=== PATIENT | female | born 1970 | race Caucasian/White ===

== ENCOUNTER 2016-10-21 14:34 | Inpatient (IN) | payer MEDICAID ==
[~2016-10-21] VITALS: Ht 165.1 cm; Wt 101.6 kg
[~2016-10-21 14:34] MED LIST: ACET500C5 PO; ALBU8.5H5 INH; AMO500 PO; AUG875 PO; DOXY100T20 PO; HYDR-3498 PO; IBUP-1542 PO; IBUP400T22 PO; ONDA4TAB35 PO; UDROBDM PO
[2016-10-21] MEDS ORDERED: ASPIRIN 325 MG TAB PO STA (17:49)
--- NOTE | 2016-10-21 17:54 | ERD ---
ER Documentation Chief Complaint Date/Time DATE: 10/21/16 TIME: 17:50 Chief Complaint CHEST PAIN X 3 WEEK HPI 46-year-old female with no significant previous medical history other than depression ambulatory to the ED complaining of chest pain. Today at approximately 1 PM while shopping experienced acute onset of pressure-like left upper chest pain which radiated to her arm and a cold feeling to the left side of her face. Symptoms have diminished but are still present. No shortness of breath, nausea, vomiting or diaphoresis. No leg pain or swelling. She has had approximately 6 similar episodes of the last 3 weeks. No other relieving or exacerbating factors. Denies abdominal pain or back pain. No headache or neck pain. Denies visual changes, focal weakness or numbness. Denies anxiety or depression. No URI symptoms or cough. No skin rash. No fevers or chills. ROS All systems reviewed and are negative except as per history of present illness. Medications Home Meds Discontinued Scripts Ibuprofen* (Motrin*) 600 Mg Tab, 600 MG PO Q6, #20 TAB Prov:CYDNEY JUSTIN MD 01/25/16 Amoxicillin-Clavulanate K* (Augmentin*) 875 Mg Tab, 875 MG PO BID for 7 Days, TAB Prov:CYDNEY NEGRO PA-C 06/01/15 Amoxicillin* (Amoxicillin*) 500 Mg Cap, 1000 MG PO Q8 for 10 Days, CAP Prov:DASIA CURRAN MD 05/28/15 Doxycycline Hyclate* (Doxycycline Hyclate*) 100 Mg Tablet.dr, 100 MG PO BID for 10 Days, TAB Prov:DASIA CURRAN MD 05/28/15 Hydrocodone Bit-Acetaminophen* ([place]*) 5-325 Mg Tab, 1 TAB PO Q6 Y for PAIN LEVEL 6-10 for 7 Days, TAB Prov:DASIA CURRAN MD 05/28/15 Albuterol Sulfate* (Albuterol Sulfate* HFA) 8.5 Gm Hfa.aer.ad, 1-2 PUFF INH Q4 Y for SHORTNESS OF BREATH, #1 EA Prov:KELSY BENAVIDEZ PA-C 05/23/15 Guaifenesin-Dextromethorphan* (Robitussin* DM) 100MG/10MG/5ML Syrup, 5 ML PO Q6H Y for COUGH, #140 ML 0 Refills Prov:RENEE LAYTON PA-C 05/22/15 Ondansetron Hcl* (Zofran* ODT) 4 mg -ODT Tab.disper, 4 MG PO Q4H Y for NAUSEA AND OR VOMITING, #30 TAB 0 Refills Prov:RENEE LAYTON PA-C 05/22/15 Ibuprofen* (Motrin*) 400 Mg Tab, 400 MG PO Q8H Y for PAIN, #21 TAB 0 Refills Prov:RENEE LAYTONDave 05/22/15 Acetaminophen* (Tylophen*) 500 Mg Capsule, 500 MG PO Q6H Y for FEVER, #28 TAB 0 Refills Prov:RENEE LAYTON PA-C 05/22/15 Allergies Allergies: Coded Allergies: hydrocodone (Verified Allergy, Mild, BECOMES AGGITATED, 10/21/16) PMhx/Soc Reviewed in chart. As per HPI. History of Surgery: Yes (carpal tunnel 2003) Anesthesia Reaction: No Hx Neurological Disorder: No Hx Respiratory Disorders: Yes (PNA) Hx Cardiac Disorders: No Hx Psychiatric Problems: Yes (Depression, Anxiety ) Hx Miscellaneous Medical Probl: Yes (Sciatica) Hx Alcohol Use: No Hx Substance Use: No Hx Tobacco Use: No FmHx Father of alcoholic liver disease. No family history of coronary artery disease, sudden cardiac or diabetes. Physical Exam Vitals Vital Signs Date Time Temp Pulse Resp B/P Pulse Ox O2 Delivery O2 Flow Rate FiO2 10/21/16 19:17 89 16 120/79 99 Room Air 10/21/16 17:19 101 21 140/101 99 Room Air 10/21/16 14:49 99.5 118 18 167/81 99 Physical Exam Const: Alert, anxious but in no acute distress. Head: Atraumatic Eyes: Normal Conjunctiva ENT: Normal External Ears, Nose and Mouth. Neck: Full range of motion. No JVD. Nontender. Resp: Clear to auscultation bilaterally Cardio: Regular rate and rhythm, no murmurs. No chest wall tenderness. Abd: Soft, obese. non tender, non distended. Normal bowel sounds Skin: No petechiae or rashes Back: No midline or flank tenderness Ext: No cyanosis, or edema. No calf swelling or tenderness. Neur: Awake and alert. No focal deficit observed. Cranial nerves II through XII are grossly intact. Psych: Patient appears anxious but not depressed. Result Diagram: 10/21/16181410/21/161814 Results 24 hrs Laboratory Tests Test 10/21/16 18:15 White Blood Count 8.310^3/ul Red Blood Count 4.2710^6/ul Hemoglobin 12.4g/dl Hematocrit 38.0% Mean Corpuscular Volume 89.0fl Mean Corpuscular Hemoglobin 29.0pg Mean Corpuscular Hemoglobin Concent 32.6g/dl Red Cell Distribution Width 13.2% Platelet Count 40131^3/UL Mean Platelet Volume 8.7fl Neutrophils % 55.9% Lymphocytes % 33.9% Monocytes % 6.8% Eosinophils % 2.8% Basophils % 0.4% Nucleated Red Blood Cells % 0.0/100WBC Neutrophils # 4.610^3/ul Lymphocytes # 2.810^3/ul Monocytes # 0.610^3/ul Eosinophils # 0.210^3/ul Basophils # 0.010^3/ul Nucleated Red Blood Cells # 0.010^3/ul Sodium Level 140mmol/L Potassium Level 3.8mmol/L Chloride Level 103mmol/L Carbon Dioxide Level 26mmol/L Anion Gap 15 Blood Urea Nitrogen 10mg/dl Creatinine 0.56mg/dl Glucose Level 92mg/dl Calcium Level 8.2mg/dl Total Bilirubin 0.8mg/dl Direct Bilirubin 0.00mg/dl Indirect Bilirubin 0.8mg/dl Aspartate Amino Transf (AST/SGOT) 18IU/L Alanine Aminotransferase (ALT/SGPT) 20IU/L Alkaline Phosphatase 86IU/L Troponin I < 0.012ng/ml Total Protein 7.7g/dl Albumin 4.0g/dl Globulin 3.70g/dl Albumin/Globulin Ratio 1.08 Current Medications Medications (Trade) Dose Ordered Sig/Aba Route PRN Reason Start Time Stop Time Status Last Admin Dose Admin Aspirin (Aspirin) 325 mg ONCE STAT PO 10/21/16 17:49 10/21/16 17:51 DC 10/21/16 18:33 Nitroglycerin (Nitroglycerin (Sl Tab) 0.4 Mg) 1 tab Q5M UP TO 3 DOSES PRN SL CHEST PAIN 10/21/16 18:00 4/6/17 18:33 Ondansetron HCl (Zofran Inj) 4 mg ER BRIDGE PRN IV NAUSEA AND/OR VOMITING 10/21/16 21:30 10/22/16 21:29 Acetaminophen (Tylenol Tab) 650 mg ER BRIDGE PRN PO MILD PAIN/FEVER 10/21/16 21:30 10/22/16 21:29 RHYTHM STRIP INTERPRETATION: Time: 19:17. Sinus rhythm. No ectopy. Ventricular rate 89. Indication: Tachycardia. EKG: TIME: 15:02. Sinus tachycardia. Ventricular rate 112. Right axis deviation. No acute ST segment elevation or depression. No ectopy. EP Interpretation: Abnormal EKG. IMAGING: PROCEDURE: Chest Radiograph. CLINICAL INDICATION: Chest pain TECHNIQUE: Single frontal chest radiograph. COMPARISON: Chest radiograph 05/26/2015 FINDINGS: The cardiomediastinal silhouette is within normal limits. Lung volumes are decreased in there is basilar atelectasis. Interstitial opacities are likely related to compressive changes. There is more focal density in the left lung base suggesting developing infiltrate, new compared to 05/26/2015. Focal atelectasis could also have this appearance. Suture anchors are stable in the right humeral head. The bones are otherwise intact. IMPRESSION: 1. Increased density in the left lung base which may represent atelectasis or developing infiltrate. 2. Low lung volumes with atelectasis and compressive changes RPTAT: HJBF .Armond Blake MD, Date Time Electronically viewed and signed by .Armond Blake MD, on 2016 18:13 .B/ Procedures/MDM DOCUMENTS REVIEWED: ED nurse, prior ED ED COURSE: Aspirin 325 mg. Sublingual nitroglycerin 3. REEXAMINATION/REEVALUATION: Time: 19:30. Pain relieved after 3 sublingual nitroglycerin. Asymptomatic. MEDICAL DECISION MAKIN-year-old female with no significant previous medical history other than depression ambulatory to the ED complaining of chest pain. She has had intermittent chest pain over the last several months but worse today. Chest x-ray reveals left lower lobe atelectasis versus developing infiltrate but the patient has no respiratory symptoms, cough, fever or other symptoms of pneumonia. No pneumothorax. Low risk for pulmonary embolism and aortic dissection is unlikely. Other etiologies such as gastritis/GERD and anxiety are considered. Atypical chest pain relieved with 3 sublingual nitroglycerin. ROBERT score 0. Lower cardiac etiology is unlikely patient has no outpatient access to follow-up and will not be able to have further risk stratification within 72 hours. She will be admitted to telemetry for further cardiac evaluation and management. Counseled patient regarding diagnostic workup, diagnosis and need for admission. CALLS/CONSULTS: Time 20:15, Dr. Hitchcock. PATIENT CARE TRANSITIONED: Time: 21:20, Dr. Hitchcock. Departure Diagnosis: Primary Impression: Chest pain Chest pain type: unspecified Qualified Code: R07.9 - Chest pain, unspecified type Additional Impression: Anxiety Condition: Serious ROXANNE RAMOS MD Oct 21, 2016 17:54
[2016-10-21] MEDS ORDERED: NITROGLYCERIN (SL) 0.4 MG TAB SL PRN ×2 (18:00→22:00)
--- NOTE | 2016-10-21 18:13 | RADRPT ---
PROCEDURE: Chest Radiograph. CLINICAL INDICATION: Chest pain TECHNIQUE: Single frontal chest radiograph. COMPARISON: Chest radiograph 05/26/2015 FINDINGS: The cardiomediastinal silhouette is within normal limits. Lung volumes are decreased in there is ba silar atelectasis. Interstitial opacities are likely related to compressive changes. There is more focal density in the left lung base suggesting developing infiltrate, new compared to 05/26/2015. Focal atelectasis could also have this appearance. Suture anchors are stable in the right humeral head. The bones are otherwise intact. IMPRESSION: 1. Increased density in the left lung base which may represent atelectasis or developing infiltrate . 2. Low lung volumes with atelectasis and compressive changes RPTAT: HJBF .Armond Blake MD, Date Time Electronically viewed and signed by .Armond Blake MD, MD on 10/21/2016 18:13 .B/
[2016-10-21 18:51] LABS: ADD SCAN DIFF NO
[2016-10-21 18:52] LABS: BASOPHILS % 0.4 % (0.0-2.0); EOSINOPHILS # 0.2 10^3/ul (0.0-0.5); EOSINOPHILS % 2.8 % (0.0-7.0); HEMOGLOBIN 12.4 g/dl (12.0-16.0); LYMPHOCYTES # 2.8 10^3/ul (0.8-2.9); LYMPHOCYTES % 33.9 % (15.0-51.0); MEAN CORPUSCULAR HGB CONC 32.6 g/dl (32.0-37.0); MEAN PLATELET VOLUME 8.7 fl (7.4-10.4); MONOCYTE # 0.6 10^3/ul (0.3-0.9); MONOCYTES % 6.8 % (0.0-11.0); NEUTROPHIL # 4.6 10^3/ul (1.6-7.5); NEUTROPHILS % 55.9 % (39.0-77.0); PLATELET COUNT 415 10^3/UL (140-415); RED BLOOD COUNT 4.27 10^6/ul (4.20-5.40); RED CELL DISTRIBUTION WIDTH 13.2 % (11.5-14.5); WHITE BLOOD COUNT 8.3 10^3/ul (4.8-10.8)
[2016-10-21 19:01] LABS: CHLORIDE 103 mmol/L (97-110); POTASSIUM 3.8 mmol/L (3.5-5.1); SODIUM 140 mmol/L (135-144)
[2016-10-21 19:03] LABS: CREATININE 0.56 mg/dl (0.44-1.00)
[2016-10-21 19:04] LABS: ALANINE AMINOTRANSFERASE 20 IU/L (13-69); ALBUMIN/GLOBULIN RATIO 1.08; ALKALINE PHOSPHATASE 86 IU/L (42-121); ANION GAP 15 (8-16); ASPARTATE AMINO TRANSFERASE 18 IU/L (15-46); BILIRUBIN,INDIRECT 0.8 mg/dl (0-1.1); BILIRUBIN,TOTAL 0.8 mg/dl (0.2-1.3); BLOOD UREA NITROGEN 10 mg/dl (7-20); CARBON DIOXIDE 26 mmol/L (21-31); GLUCOSE 92 mg/dl (70-220); TOTAL PROTEIN 7.7 g/dl (6.1-8.1)
[2016-10-21 19:05] LABS: CALCIUM 8.2 mg/dl (8.4-10.2)
[2016-10-21 19:17] LABS: TROPONIN-I < 0.012 ng/ml (0.00-0.12)
[2016-10-21] MEDS ORDERED: ONDANSETRON 4 MG INJ IV PRN (21:30)
[2016-10-21] MEDS ORDERED: ACETAMINOPHEN 325 MG TAB PO PRN (21:30)
--- NOTE | 2016-10-21 21:31 | HP ---
Date/Time of Note Date/Time of Note DATE: 10/21/16 TIME: 21:31 Assessment/Plan VTE Prophylaxis VTE Prophylaxis Intervention: ambulation Lines/Catheters IV Catheter Type (from Nrsg): Saline Lock Assessment/Plan Assessment/Plan 1) Chest Pain - Admit to Telemetry - Serial Cardiac Enzymes - Repeat EKG in AM - CONSULT: Cardiology - Echocardiogram 2) Anxiety - No specific treatment is offered at this time other than if she feels anxious in the future, she should take a long, slow, deep breath in through her nose and then out through her mouth. - Establish with a primary care provider who can evaluate to more specifically more importantly, followed you over time. HPI/ROS Admit Date/Time Admit Date/Time 10/21/16 2110 Hx of Present Illness Patient is a 46-year-old female with no significant previous medical history other than anxiety and depression who presents complaining of chest pain off and on x 3 weeks, but significantly worse today. At approximately 1 PM, while shopping, she experienced acute onset of pressure-like left upper chest pain which radiated to her left arm and a tingling feeling to the left side of her face. Symptoms had diminished on their own, but were still present. (They resolved with 3 rounds of NTG.) No associated shortness of breath, nausea, vomiting or diaphoresis. No leg pain or swelling. She has had approximately 6 similar episodes of the last 3 weeks. No other relieving or exacerbating factors. Denies abdominal pain or back pain. No headache or neck pain. Denies visual changes, focal weakness or numbness. Denies anxiety or depression. No URI symptoms or cough. No skin rash. No fevers or chills. She does admit that in the past, over the last couple of years, she has had the same feeling in the left side of her face, but no associated symptoms such as chest pain, slurred speech, extremity weakness or vision changes. When I see her , her symptoms are completely resolved, and she is thinking that is t=was just her anxiety coming back ED COURSE per ER Physician: Aspirin 325 mg. Sublingual nitroglycerin 3. - REEXAMINATION/REEVALUATION: Time: 19:30. Pain relieved after 3 sublingual nitroglycerin. Asymptomatic. ROS General: Admits: Denies: Fever, Chills, Poor Appetite, Generalized Body Aches Eyes: Admits: Denies: Blurry Vision, Double Vision HENT: Admits: Denies: Ear Pain/Pressure, Runny/Stuffy Nose, Sore Throat Cardiovascular: Admits: Chest Pain, Denies: Palpitations, Leg Swelling Pulmonary: Admits: Denies: Cough, Wheeze, Shortness of Breath Gastrointestinal: Admits: Denies: Abdominal Pain, Nausea, Vomiting, Diarrhea, Blood in Stool, Black-Colored Stool Urogenital: Admits: Denies: Burning with Urination, Urinary Frequency, Blood in Urine Musculoskeletal: Admits: Left arm pain - RESOLVED Denies: Joint Pain, Joint Swelling, Muscle Pain Neurological: Admits: Numbness & Tingling to left side of face, more on the cheek/lower half - RESOLVED Denies: Headache, Dizziness,, Shooting Pains Integumentary: Admits: Denies: Rash, Itch Endocrine: Admits: Denies: Excessive Thirst, Excessive Hunger, Intolerant to Cold , Intolerant to Heat Psychiatric: Admits: Anxiety, Depression - weaned off medications 3 years ago. Thinks she may need to go back on them. Denies: PMH/Family/Social Past Medical History Pneumonia; Depression; Anxiety; Sciatica Past Surgical History carpal tunnel 2003 Family History Significant Family History: other (Father of alcoholic liver disease. No family history of coronary artery disease, sudden cardiac or diabetes.) Social History Alcohol Use: none Smoking Status: Never smoker Drug Use: none Exam/Review of Systems Vital Signs Vitals Vital Signs Date Time Temp Pulse Resp B/P Pulse Ox O2 Delivery O2 Flow Rate FiO2 10/21/16 19:17 89 16 120/79 99 Room Air 10/21/16 14:49 99.5 Exam Exam General: Obese female sleeping soundly, rouses easily, alert and oriented, in no acute distress. Eyes: Sclera White, EOMI HENT: Normocephalic/Atraumatic, External Ears/Nose Normal, Moist Mucus Membranes Neck: Supple, Trachea Midline Cardiovascular: Normal Rate, Regular Rhythm, Normal S1 and S2, No Murmur, No Extra Sounds. Radial pulse +2/4. No pedal Edema. Pulmonary: Clear to Auscultation Bilaterally, Normal Respiratory Effort, No Rales, Rhonchi or Wheezes Gastrointestinal: Normoactive Bowel Sounds, Soft, Non-Tender/Non-Distended, No Hepatosplenomegaly Appreciated, No Pulsatile Masses Urogenital: Deferred Musculoskeletal: Normal Muscle Bulk and Tone. No reproducible chest pain with palpation ove the left upper and central chest regions. Neurological: CN II - XII Grossly Intact, Non-Focal, Speech Normal Integumentary: Normal Moisture and Temperature, Good Turgor, No Jaundice, No Rash Lymphatic: No Cervical Lymphadenopathy Psychiatric: Appropriate Mood and Affect, Good Eye Contact Labs Result Diagram: 10/21/16181410/21/161814 Medications Medications Home Meds Discontinued Scripts Ibuprofen* (Motrin*) 600 Mg Tab, 600 MG PO Q6, #20 TAB Prov:CYDNEY JUSTIN MD 01/25/16 Amoxicillin-Clavulanate K* (Augmentin*) 875 Mg Tab, 875 MG PO BID for 7 Days, TAB Prov:CYDNEY NEGRO PA-C 06/01/15 Amoxicillin* (Amoxicillin*) 500 Mg Cap, 1000 MG PO Q8 for 10 Days, CAP Prov:DASIA CURRAN MD 05/28/15 Doxycycline Hyclate* (Doxycycline Hyclate*) 100 Mg Tablet.dr, 100 MG PO BID for 10 Days, TAB Prov:DASIA CURRAN MD 05/28/15 Hydrocodone Bit-Acetaminophen* ([place]*) 5-325 Mg Tab, 1 TAB PO Q6 Y for PAIN LEVEL 6-10 for 7 Days, TAB Prov:DASIA CURRAN MD 05/28/15 Albuterol Sulfate* (Albuterol Sulfate* HFA) 8.5 Gm Hfa.aer.ad, 1-2 PUFF INH Q4 Y for SHORTNESS OF BREATH, #1 EA Prov:KELSY BENAVIDEZ PA-C 05/23/15 Guaifenesin-Dextromethorphan* (Robitussin* DM) 100MG/10MG/5ML Syrup, 5 ML PO Q6H Y for COUGH, #140 ML 0 Refills Prov:RENEE LAYTON PA-C 05/22/15 Ondansetron Hcl* (Zofran* ODT) 4 mg -ODT Tab.disper, 4 MG PO Q4H Y for NAUSEA AND OR VOMITING, #30 TAB 0 Refills Prov:RENEE LAYTON PA-C 05/22/15 Ibuprofen* (Motrin*) 400 Mg Tab, 400 MG PO Q8H Y for PAIN, #21 TAB 0 Refills Prov:RENEE LAYTON AUGUSTINE 05/22/15 Acetaminophen* (Tylophen*) 500 Mg Capsule, 500 MG PO Q6H Y for FEVER, #28 TAB 0 Refills Prov:CALINRENEE BRADSHAW 05/22/17 Current Medications Medications (Trade) Dose Ordered Sig/Aba Route PRN Reason Start Time Stop Time Status Last Admin Dose Admin Aspirin (Aspirin) 325 mg ONCE STAT PO 10/21/16 17:49 10/21/16 17:51 DC 10/21/16 18:33 Nitroglycerin (Nitroglycerin (Sl Tab) 0.4 Mg) 1 tab Q5M UP TO 3 DOSES PRN SL CHEST PAIN 10/21/16 18:00 10/21/16 18:33 Ondansetron HCl (Zofran Inj) 4 mg ER BRIDGE PRN IV NAUSEA AND/OR VOMITING 10/21/16 21:30 10/22/16 21:29 Acetaminophen (Tylenol Tab) 650 mg ER BRIDGE PRN PO MILD PAIN/FEVER 10/21/16 21:30 10/22/16 21:29 Procedures Procedures RHYTHM STRIP INTERPRETATION: Time: 19:17. Sinus rhythm. No ectopy. Ventricular rate 89. Indication: Tachycardia. EKG: TIME: 15:02. Sinus tachycardia. Ventricular rate 112. Right axis deviation. No acute ST segment elevation or depression. No ectopy. EP Interpretation: Abnormal EKG. PROCEDURE: Chest Radiograph. CLINICAL INDICATION: Chest pain TECHNIQUE: Single frontal chest radiograph. COMPARISON: Chest radiograph 05/26/2015 FINDINGS: The cardiomediastinal silhouette is within normal limits. Lung volumes are decreased in there is basilar atelectasis. Interstitial opacities are likely related to compressive changes. There is more focal density in the left lung base suggesting developing infiltrate, new compared to 05/26/2015. Focal atelectasis could also have this appearance. Suture anchors are stable in the right humeral head. The bones are otherwise intact. IMPRESSION: 1. Increased density in the left lung base which may represent atelectasis or developing infiltrate. 2. Low lung volumes with atelectasis and compressive changes ABBY BERG DO Oct 21, 2016 21:31
[2016-10-21] MEDS ORDERED: morphine 2 MG INJ IV PRN (22:00)
[2016-10-21] MEDS ORDERED: METOCLOPRAMIDE 10 MG INJ IV PRN (22:00)
[2016-10-21] MEDS ORDERED: NACL 0.9% 3 ML SYG IV SCH (22:00)
[2016-10-21 22:44] LABS: CREATINE KINASE 107 IU/L (23-200)
[2016-10-21 22:54] LABS: CK-MB 0.41 ng/ml (0.0-2.4)
[2016-10-21 22:59] LABS: TROPONIN-I < 0.012 ng/ml (0.00-0.12)
[2016-10-22] VITALS (10 sets, daily range): BP systolic 107–123; BP diastolic 63–77; PULSE 67–100; RESP 16–19; Ht 165.1 cm; Wt 101.6 kg
[2016-10-22] MEDS: FAMOTIDINE 20 MG TAB PO SCH ×2 (09:18→20:25)
[2016-10-22 11:01] LABS: ADD SCAN DIFF NO
[2016-10-22] MEDS: ACETAMINOPHEN 325 MG TAB PO PRN ×2 (11:09→20:26)
[2016-10-22 11:13] LABS: BASOPHILS % 0.3 % (0.0-2.0); EOSINOPHILS # 0.2 10^3/ul (0.0-0.5); EOSINOPHILS % 2.3 % (0.0-7.0); HEMOGLOBIN 11.9 g/dl (12.0-16.0); LYMPHOCYTES # 2.4 10^3/ul (0.8-2.9); LYMPHOCYTES % 35.9 % (15.0-51.0); MEAN CORPUSCULAR HEMOGLOBIN 28.7 pg (29.0-33.0); MEAN CORPUSCULAR HGB CONC 32.2 g/dl (32.0-37.0); MEAN CORPUSCULAR VOLUME 89.2 fl (82.0-101.0); MEAN PLATELET VOLUME 8.7 fl (7.4-10.4); MONOCYTE # 0.4 10^3/ul (0.3-0.9); MONOCYTES % 5.9 % (0.0-11.0); NEUTROPHIL # 3.7 10^3/ul (1.6-7.5); NEUTROPHILS % 55.4 % (39.0-77.0); PLATELET COUNT 359 10^3/UL (140-415); RED BLOOD COUNT 4.15 10^6/ul (4.20-5.40); RED CELL DISTRIBUTION WIDTH 13.4 % (11.5-14.5); WHITE BLOOD COUNT 6.6 10^3/ul (4.8-10.8)
[2016-10-22 11:16] LABS: CREATINE KINASE 81 IU/L (23-200)
[2016-10-22 11:18] LABS: CHOL/HDL RATIO 4.8 RATIO; MAGNESIUM 1.9 mg/dl (1.7-2.5)
[2016-10-22 11:34] LABS: CK-MB < 0.22 ng/ml (0.0-2.4); TROPONIN-I < 0.012 ng/ml (0.00-0.12)
--- NOTE | 2016-10-22 17:36 | RADRPT ---
Echocardiogram Report Patient Name: NICHELLE MILLER Gender: Female Date: 1970 Study Date: 22-Oct-2016 Racking Technician: Kaylene Trevizo [facility] Location: [id number] Ref. Physician: ABBY BERG Quality: Good Procedures: Transthoracic echocardiogram with complete 2D, M-Mode, and doppler examination. Indications: Chest Pain. 2D/M Mode Doppler Measurement Value Normal Ranges Measurement Value Normal Ranges LVIDd 2D 5.2 3.5 - 5.6 cm AV Peak Jorge 1.3 m/sec LVIDs 2D 2.2 2.1 - 4.1 cm AV Peak PG 6.5 mmHg LVPWd 2D 0.7 0.6 - 1.1 cm LVOT Peak Jorge 1.2 m/sec IVSd 2D 0.8 0.6 - 1.1 cm LVOT Peak PG 5.7 mmHg AoR Diam 2D 2.8 2.0 - 3.7 cm MV E Peak Jorge 1.0 m/sec EDV 2D 130.7 cm3 MV A Peak Jorge 0.8 m/sec ESV 2D 10.7 cm3 MV E/A 1.3 LA Dimen 2D 3.2 2.3 - 4.0 cm MV Decel Time 162 msec MV Decel Jones 6 MV E/A 1.3 Findings Left Ventricle: Lower limits of normal systolic function. Normal left ventricular cavity size. Normal left ventricular wall thickness. Ejection fraction is visually estimated at 50 %. Tissue Doppler/Mitral Doppler indices are within normal limits. Right Ventricle: Normal right ventricular size. Normal right ventricular systolic function. Left Atrium: The left atrium is normal in size. Right Atrium: The right atrium is normal in size. Mitral Valve: Normal appearance and function of the mitral valve with trace physiologic regurgitation. Aortic Valve: Normal appearance of the aortic valve. No significant aortic stenosis or insufficiency. Tricuspid Valve: Normal appearance of the tricuspid valve. Unable to obtain RVSP due to minimal presence of tricuspid regurgitation. Pulmonic Valve: Normal pulmonic valve appearance. Pericardium: Normal pericardium with no significant pericardial effusion. Aorta: Normal aortic root. IVC: Normal size and normal respiratory collapse consistent with normal right atrial pressure. Conclusions 1.Lower limits of normal systolic function. Normal left ventricular cavity size. Normal left ventricular wall thickness. Ejection fraction is visually estimated at 50 %. Tissue Doppler/Mitral Doppler indices are within normal limits. 2.Normal appearance and function of the mitral valve with trace physiologic regurgitation. 3.Normal appearance of the tricuspid valve. Unable to obtain RVSP due to minimal presence of tricuspid regurgitation. Electronically Signed By: Mike Stein 22-Oct-2016 17:36:18 -0700 Patient Name: NICHELLE MILLER Study Date: 22-Oct-2016 [id number]
--- NOTE | 2016-10-22 18:09 | PN ---
DATE: 10/22/2016 SUBJECTIVE DATA: Denies any chest pain. Denies any dyspnea. OBJECTIVE DATA: VITAL SIGNS: Temperature 98.0, pulse rate 84, respiratory rate 18, blood pressure 123/77, oxygen saturation 100% on room air. GENERAL: This is a 49-year-old female, morbidly obese, lying in bed in no apparent distress. HEENT: Head normocephalic and atraumatic. Eyes: Anicteric sclerae. Conjunctivae clear. ENT: Nasal septum is midline. Oral mucosa is moist. NECK: Supple. No JVD noticed. RESPIRATORY: Bilaterally clear to auscultation. No adventitious breath sounds. No use of accessory muscles of respiration. CARDIAC: Regular rate and rhythm. No murmurs heard. ABDOMEN: Soft, nontender and nondistended. Bowel sounds positive in all 4 quadrants. GENITOURINARY: Deferred. EXTREMITIES: No cyanosis, no clubbing, no edema. Peripheral pulses palpable. NEUROLOGIC: The patient is awake, alert and oriented. Cranial nerves are grossly intact. LABORATORY AND DIAGNOSTIC DATA: WBC 6.6, hemoglobin 11.9, hematocrit 37.0, platelet count 359. Sodium 140, potassium 3.9, chloride 103, carbon dioxide 26 , anion gap 15, BUN 10, creatinine 0.56, glucose 92, calcium 8.2. Magnesium 1.9. Hemoglobin A1c 5.5. Triglycerides 156, total cholesterol 174, LDL 107, HDL 36. ASSESSMENT AND PLAN: 1. Chest pain. To rule out acute coronary syndrome. Serial troponins negative so far. Pending 2D echocardiogram. 2. Anxiety disorder. We will maintain the patient on p.r.n. anxiolytics. 3. Dyslipidemia. Elevated triglycerides and suboptimal LDL. We will advise a low cholesterol diet. 4. Obesity. BMI of 37.3 kg/meter squared. We will advise weight reduction. 5. Fluid, electrolytes and nutrition. Low cholesterol diet. 6. Deep venous thrombosis prophylaxis with ambulation. 7. Gastrointestinal prophylaxis. Histamine 2 receptor blockers. PLAN: Continue current care. Await 2D echocardiogram. Case discussed with Dr. Whittaker. RONEL WHITTAKER MD, AM/RENEE Conf#: [id number] DID#: [id number] [facility]
[2016-10-23] VITALS (8 sets, daily range): BP systolic 106–114; BP diastolic 56–63; PULSE 60–82; RESP 18–20
[2016-10-23 07:36] LABS: ADD SCAN DIFF NO
[2016-10-23 07:46] LABS: BASOPHILS % 0.5 % (0.0-2.0); EOSINOPHILS # 0.2 10^3/ul (0.0-0.5); EOSINOPHILS % 3.6 % (0.0-7.0); HEMATOCRIT 38.4 % (37.0-47.0); HEMOGLOBIN 12.2 g/dl (12.0-16.0); LYMPHOCYTES # 2.2 10^3/ul (0.8-2.9); LYMPHOCYTES % 36.5 % (15.0-51.0); MEAN CORPUSCULAR HEMOGLOBIN 28.6 pg (29.0-33.0); MEAN CORPUSCULAR HGB CONC 31.8 g/dl (32.0-37.0); MEAN CORPUSCULAR VOLUME 89.9 fl (82.0-101.0); MONOCYTE # 0.4 10^3/ul (0.3-0.9); MONOCYTES % 6.7 % (0.0-11.0); NEUTROPHIL # 3.2 10^3/ul (1.6-7.5); NEUTROPHILS % 52.5 % (39.0-77.0); PLATELET COUNT 367 10^3/UL (140-415); RED BLOOD COUNT 4.27 10^6/ul (4.20-5.40); RED CELL DISTRIBUTION WIDTH 13.3 % (11.5-14.5); WHITE BLOOD COUNT 6.1 10^3/ul (4.8-10.8)
[2016-10-23 08:04] LABS: CALCIUM 8.1 mg/dl (8.4-10.2); CREATININE 0.5 mg/dl (0.44-1.00); POTASSIUM 4.2 mmol/L (3.5-5.1)
[2016-10-23 08:06] LABS: MAGNESIUM 1.9 mg/dl (1.7-2.5)
[2016-10-23] MEDS: FAMOTIDINE 20 MG TAB PO SCH (08:15)
--- NOTE | 2016-10-23 10:53 | PDOCDIS ---
Discharge Instructions DIAGNOSIS Discharge Diagnosis: Atypical chest pain. CONDITION Patient Condition: Stable HOME CARE INSTRUCTIONS: Diet Instructions: Low Fat /Cholesterol OTHER ORDERS: Other Orders: 1. Take a low-cholesterol diet. 2. Resume activities as tolerated. 3. Follow-up with your primary care physician as scheduled. 4. Take vitamin D supplements. RONEL DUENAS NP Oct 23, 2016 10:53
[2016-10-23] MEDS ORDERED: CHOL400T10 PO (10:54)
--- NOTE | 2016-10-23 13:06 | DS ---
DATE OF ADMISSION: 10/21/2016 DATE OF DISCHARGE: 10/23/2016 FINAL DIAGNOSES: 1. Atypical chest pain. Acute coronary syndrome ruled out. 2. Anxiety disorder. 3. Dyslipidemia. 4. Obesity. 5. Vitamin D deficiency. CONSULTANTS: None. HOSPITAL COURSE: This is a 46-year-old female with no significant past medical history other than a remote history of anxiety who presents to the emergency room complaining of intermittent chest pain that has been going on for 3 weeks. The patient came to the hospital because the chest pain was getting worse. The patient experienced sudden onset of left-sided chest pain on the day of admission that was pressure like in the left upper chest that radiated to her left arm. She also had complaints of tingling feeling of left side of her face. There was no associated dyspnea, nausea, vomiting or diaphoresis. There was no associated calf pain. Provided the patient's history of present illness, a clinical decision was made to admit the patient to inpatient setting to have her further evaluated. The patient was admitted to inpatient telemetry floor. Serial troponins were ordered. A 2D echocardiogram was ordered. The patient's serial troponins remained negative. The patient's 2D echocardiogram showed preserved left ventricular ejection fraction. Hence, the patient's chest pain was concluded to be musculoskeletal in origin. The patient was noticeably obese. The patient 's fasting lipid panel showed dyslipidemia with elevated triglycerides and suboptimal LDL and HDL. The patient was advised on a low cholesterol diet. The patient's hemoglobin A1c was 5.5. The patient was advised on weight reduction. The patient was incidentally found to have low vitamin D levels. Hence, the patient was started on vitamin D supplements. The patient has a remote history of anxiety. The patient did not require any anxiolytics during this hospitalization. The patient had a stable hospital course. The patient is stable to be discharged home. The patient denied any complaints at the time of discharge. DISCHARGE PLAN: The patient will be discharged home today. The patient was instructed to take a low-cholesterol diet. The patient was instructed to resume activities as tolerated. She was instructed to follow up with her primary care physician as scheduled. The patient was instructed to take vitamin D supplements. The patient verbalized understanding of her discharge instructions. CONDITION AT DISCHARGE: Stable. DISCHARGE MEDICATIONS: Vitamin D 800 units p.o. daily x30 days. PERTINENT LABORATORY AND DIAGNOSTIC DATA: 1. 2-D echocardiogram. Ejection fraction of 50%. Normal appearance and function of the mitral valve with trace physiologic regurgitation. Normal appearance of tricuspid valve. Unable to obtain RVSP due to minimal presence of tricuspid regurgitation. 2. Chest x-ray. Increased density in the left lung base which represented atelectasis. Low lung volumes. 3. Latest CBC: WBC 6.1, hemoglobin 12.2, hematocrit 38.4, platelet count 367. 4. BMP: Sodium 137, potassium 4.0, chloride 107, carbon dioxide 25, anion gap 10, BUN 9, creatinine 0.50, glucose 98, calcium 8.1, phosphorus 4.0, magnesium 1.9. 4. Fasting lipid panel: Triglycerides 156, total cholesterol 194, LDL 107, AST 36, vitamin D level 15.9. 5. Hemoglobin A1c 5.5. The case and management of this patient was fully discussed with Dr. Whittaker. Approximately 35 minutes was spent on coordinating the discharge on this patient. RONEL WHITTAKER MD, AM/RENEE Conf#: [id number] DID#: [id number] MTDD
== END 2016-10-23 15:12 | disposition home or self-care (01) | DRG 313 ==
LOC: E/R 14:34 → MS4 21:11
PROVIDERS: ADMIT Family Medicine; ATTEND Family Medicine
DX: R07.89 Other chest pain (principal); E55.9 Vitamin D deficiency, unspecified; F41.9 Anxiety disorder, unspecified; E78.5 Hyperlipidemia, unspecified; E66.9 Obesity, unspecified; Z68.37 Body mass index [BMI] 37.0-37.9, adult
CPT/HCPCS: 36415; 71010; 80048; 80053; 80061; 82550; 82553; 82652; 83036; 83735; 84100; 84484; 85025; 93005; 93306

== ENCOUNTER 2017-04-20 14:35 | Emergency (ER) | END 2017-04-20 17:24 | disposition home or self-care (01) | DX: B34.9 Viral infection, unspecified (principal); R11.0 Nausea ==

== ENCOUNTER 2018-03-02 18:33 | Emergency (ER) | END 2018-03-02 23:24 | disposition home or self-care (01) ==

== ENCOUNTER 2018-09-28 18:57 | Emergency (ER) | payer OTHER ==
[~2018-09-28] VITALS: Wt 105.1 kg
[~2018-09-28 18:57] MED LIST changes: -ACET500C5 PO; -ALBU8.5H5 INH; -AMO500 PO; -AUG875 PO; -DOXY100T20 PO; -HYDR-3498 PO; -IBUP400T22 PO; -ONDA4TAB35 PO; -UDROBDM PO
--- NOTE | 2018-09-28 23:41 | ERD ---
ER Documentation Chief Complaint Chief Complaint BILAT LOWER LIDS SWELLING/STY [id number] HPI 48-year-old female, presents to the emergency department, complaining of bilateral lower eyelid swelling with erythema for 2 weeks. No blurred vision, no fever, no chills. ROS All systems reviewed and are negative except as per history of present illness. Medications Home Meds Active Scripts Prednisolone Acetate* (Pred Forte*) 5 Ml Susp, 1 DROP BOTH EYES TID for 7 Days, #1 EA Prov:GIGI GUEVARA MD 09/29/18 Polymyxin/Trimethoprim* (Polytrim* Eye Drops) 10 Ml Drops, 1 DROP BOTH EYES Q3H for 7 Days, EA Prov:GIGI GUEVARA MD 09/29/18 Cephalexin* (Keflex*) 500 Mg Capsule, 500 MG PO BID for 7 Days, CAP Prov:GIGI GUEVARA MD 09/29/18 Ibuprofen* (Motrin*) 600 Mg Tab, 600 MG PO Q6H PRN for PAIN AND OR ELEVATED TEMP, #30 TAB Prov:MARY RUBIO MD 03/02/18 Allergies Allergies: Coded Allergies: hydrocodone (Verified Allergy, Mild, BECOMES AGGITATED, 03/02/18) PMhx/Soc Anesthesia Reaction: No Hx Neurological Disorder: No Hx Respiratory Disorders: No Hx Cardiac Disorders: No Hx Psychiatric Problems: No Hx Miscellaneous Medical Probl: No Hx Alcohol Use: No Hx Substance Use: No Hx Tobacco Use: No Smoking Status: Never smoker Physical Exam Vitals Vital Signs Date Temp Pulse Resp B/P (MAP) Pulse Ox O2 O2 Flow FiO2 Time Delivery Rate 09/28/18 98.3 105 12 156/94 99 19:13 (114) Physical Exam Const: No acute distress Head: Atraumatic Eyes: Bilateral eyelid with erythematous, well-defined nodules <5mm. ENT: Normal External Ears, Nose and Mouth. Neck: Full range of motion. No meningismus. Resp: Clear to auscultation bilaterally Cardio: Regular rate and rhythm, no murmurs Abd: Soft, non tender, non distended. Normal bowel sounds Skin: No petechiae or rashes Back: No midline or flank tenderness Ext: No cyanosis, or edema Neur: Awake and alert Psych: Normal Mood and Affect Procedures/MDM Differential diagnosis include but not limited to: infection bacte rial/viral/fungal, iritis, scleritis, corneal abrasion, allergies, foreign body, glaucoma. Physical examination and clinical presentation consistent most likely with bilateral hordeolum. During the ED course the patient remained stable, no new complaints. Clinical impression discussed with patient who agrees with management. The patient is stable to be treated outpatient and will be discharged home; Some side effects of prescribed medications (headache, rash, nausea, vomiting, diarrhea, interactions with other medications) were reviewed. The patient was instructed to follow up with the primary care provider in the next 48h. If symptoms persist, worsen or new symptoms develop, then patient should return to the ED immediately. Disclaimer: Inadvertent spelling and grammatical errors are likely due to EHR/dictation software use and do not reflect on the overall quality of patient care. Also, please note that the electronic time recorded on this note does not necessarily reflect the actual time of the patient encounter. Departure Diagnosis: Primary Impression: Hordeolum externum of left eye Additional Impression: Hordeolum externum of right eye Condition: Stable Additional Instructions: Thank you very much for allowing us to participate in your care. Your health and safety is our top priority at [facility]. Call your primary care doctor TOMORROW for an appointment during the next 2-4 days and bring all the information and medications prescribed. Have prescriptions filled and follow precisely the directions on the label. If the symptoms get worse and your provider is unavailable, return to the Emergency Department immediately. GIGI GUEVARA MD Sep 28, 2018 23:41
[2018-09-29] MEDS ORDERED: PRED5DRO20 BOTH EYES (00:22)
[2018-09-29] MEDS ORDERED: CEPH-443 PO (00:22)
[2018-09-29] MEDS ORDERED: POLY10DR BOTH EYES (00:22)
[2018-09-29 00:47] VITALS: BP 131/78; PULSE 85; RESP 18
== END 2018-09-29 00:48 | disposition home or self-care (01) ==
LOC: FTE 18:57
DX: H00.015 Hordeolum externum left lower eyelid (principal); H00.012 Hordeolum externum right lower eyelid
CPT/HCPCS: 99283

== ENCOUNTER 2018-12-21 20:11 | Emergency (ER) | payer OTHER ==
[~2018-12-21] VITALS: Ht 157.5 cm; Wt 107.7 kg
[~2018-12-21 20:11] MED LIST changes: +CEPH-443 PO; +POLY10DR BOTH EYES; +PRED5DRO20 BOTH EYES
[2018-12-21 20:34] VITALS: BP 156/84; PULSE 103; RESP 20; Ht 157.5 cm; Wt 107.7 kg
[2018-12-21] MEDS ORDERED: IBUP-1542 PO (23:07)
[2018-12-21] MEDS ORDERED: ERYT1OIN6 BOTH EYES (23:10)
--- NOTE | 2018-12-22 04:44 | ERD ---
ER Documentation Chief Complaint Chief Complaint pain left side of body x 3 days. denies trauma, no neuro deficits HPI 48-year-old female presenting to the emergency department with complaints of left chest pain which is sharp in nature for the past 3 days. She also reports some numbness and tingling to the left side of her face. She denies any weakness on one side of the body. Symptoms are constant and associated with nausea. Symptoms are currently mild to moderate. She describes the chest pain as sharp. She denies any cough or shortness of breath. She states she has had these exact same symptoms 4 times in the past which have always brought her to the emergency department. ROS All systems reviewed and are negative except as per history of present illness. Medications Home Meds Active Scripts Erythromycin Base (Erythromycin) 1 Gm Oint...g., 1 APPLIC BOTH EYES QID for 7 Days Prov:SKYLER ESPARZA PA-C 12/21/18 Ibuprofen* (Motrin*) 600 Mg Tab, 600 MG PO Q6, #30 TAB Prov:SKYLER ESPARZA PA-C 12/21/18 Prednisolone Acetate* (Pred Forte*) 5 Ml Susp, 1 DROP BOTH EYES TID for 7 Days, #1 EA Prov:GIGI GUEVARA MD 09/29/18 Polymyxin/Trimethoprim* (Polytrim* Eye Drops) 10 Ml Drops, 1 DROP BOTH EYES Q3H for 7 Days, EA Prov:GIGI GUEVARA MD 09/29/18 Cephalexin* (Keflex*) 500 Mg Capsule, 500 MG PO BID for 7 Days, CAP Prov:GIGI GUEVARA MD 09/29/18 Ibuprofen* (Motrin*) 600 Mg Tab, 600 MG PO Q6H PRN for PAIN AND OR ELEVATED TEMP, #30 TAB Prov:LIAM RUBIO MD 03/02/18 Allergies Allergies: Coded Allergies: hydrocodone (Verified Allergy, Mild, BECOMES AGGITATED, 03/02/18) PMhx/Soc Medical and Surgical Hx: pt denies Medical Hx Anesthesia Reaction: No Hx Neurological Disorder: No Hx Respiratory Disorders: No Hx Cardiac Disorders: No Hx Psychiatric Problems: No Hx Miscellaneous Medical Probl: No Hx Alcohol Use: No Hx Substance Use: No Hx Tobacco Use: No FmHx Family History: No diabetes Physical Exam Vitals Vital Signs Date Temp Pulse Resp B/P (MAP) Pulse Ox O2 O2 Flow FiO2 Time Delivery Rate 12/21/18 99.7 103 20 156/84 98 20:34 (108) Physical Exam Const: No acute distress Head: Atraumatic Eyes: Normal Conjunctiva ENT: Normal External Ears, Nose and Mouth. Neck: Full range of motion. No meningismus. Resp: Clear to auscultation bilaterally Cardio: Regular rate and rhythm, no murmurs. Reproducible left chest wall tenderness to palpation. Abd: Soft, non tender, non distended. Normal bowel sounds Skin: No petechiae or rashes Back: No midline or flank tenderness Ext: No cyanosis, or edema Neur: Awake and alert. No neurological deficits. Psych: Normal Mood and Affect Procedures/MDM 48-year-old female presenting to the emergency department complaining of left chest pain. She was improved during her ED course. Chest x-ray is negative for any acute abnormalities. EKG was not concerning for acute coronary syndrome. I doubt pulmonary embolism, pneumothorax, aortic dissection, pneumonia, acute coronary syndrome, or other emergencies. Patient's thoracic symptoms have stabilized while in the department and are stable for outpatient follow up. I discussed this case with attending ED physician, Dr. Liam Rubio who is in agreement with the history, exam, work-up, overall ED course, and plan to discharge home with close primary care and cardiology follow-up. Patient was advised to return to the department immediately for any new or worsening or concerning symptoms and she was in agreement. EKG: Interpreted by ED physician. Rate/Rhythm: Normal Sinus Rhythm with a rate of [address] bpm. QRS, ST, T-waves: No changes consistent w/ acute ischemia Impression: No evidence of ischemia or arrhythmia Patient's blood pressure was elevated (>120/80) but appears stable without evidence of hypertension emergency or urgency. The patient is to follow-up and pursue outpatient monitoring and therapy with their primary care physician within 1 week and return immediately if they have any new, worsening, or concerning symptoms. Departure Diagnosis: Primary Impression: Chest pain Condition: Fair Patient Instructions: Chest Pain, Uncertain Cause Additional Instructions: Call your primary care doctor TOMORROW for an appointment during the next 1-2 days.See the doctor sooner or return here if your condition worsens before your appointment time. SKYLER ESPARZA PA-C Dec 22, 2018 04:44
== END 2018-12-21 23:14 | disposition home or self-care (01) ==
LOC: FTE 20:11
DX: R07.89 Other chest pain (principal)
CPT/HCPCS: 71045; 93005; Z7502

== ENCOUNTER 2018-12-23 08:05 | Emergency (ER) | payer OTHER ==
[~2018-12-23] VITALS: Ht 157.5 cm; Wt 107.5 kg
[~2018-12-23 08:05] MED LIST changes: +ERYT1OIN6 BOTH EYES
[2018-12-23 08:08] VITALS: BP 133/74; PULSE 86; RESP 16; Ht 157.5 cm; Wt 107.5 kg
[2018-12-23] MEDS ORDERED: LORA-441 PO (08:43)
--- NOTE | 2018-12-23 08:53 | ERD ---
ER Documentation Chief Complaint Chief Complaint headcahe with lt side body pain x 1 week HPI Patient is a 48-year-old female who presents the ER for concerns of a headache as well as left-sided body pain x1 week. Patient was seen here 2 days ago. Patient states she was discharged home with ibuprofen and she states that ibuprofen is not helping her with her pain. Patient states every time she comes to the ER she gets ibuprofen and that "does not help." Patient states she has had similar pain in the past for many years now. Patient states her head pain is throughout her head. She denies any falls or trauma. Patient denies sudden worsening pain. Patient denies any neck pain or neck stiffness. Patient denies any blurry vision, photophobia, phonophobia, fevers, chills, neck pain or neck stiffness. Patient denies any chest pain or shortness of breath. Patient states she also has pain in her left arm and left leg. Patient is brought in by daughter. Patient does admit to feeling stressed. Patient denies any homicidal or suicidal ideations. ROS All systems reviewed and are negative except as per history of present illness. Medications Home Meds Active Scripts Lorazepam* (Ativan*) 0.5 Mg Tablet, 0.5 MG PO Q8, #5 TAB Prov:KIRK TIDWELL PA-C 12/23/18 Erythromycin Base (Erythromycin) 1 Gm Oint...g., 1 APPLIC BOTH EYES QID for 7 Days Prov:SKYLER ESPARZA PA-C 12/21/18 Ibuprofen* (Motrin*) 600 Mg Tab, 600 MG PO Q6, #30 TAB Prov:SKYLER ESPARZA PA-C 12/21/18 Prednisolone Acetate* (Pred Forte*) 5 Ml Susp, 1 DROP BOTH EYES TID for 7 Days, #1 EA Prov:GIGI GUEVARA MD 09/29/18 Polymyxin/Trimethoprim* (Polytrim* Eye Drops) 10 Ml Drops, 1 DROP BOTH EYES Q3H for 7 Days, EA Prov:GIGI GUEVARA MD 09/29/18 Cephalexin* (Keflex*) 500 Mg Capsule, 500 MG PO BID for 7 Days, CAP Prov:GIGI GUEVARA MD 09/29/18 Ibuprofen* (Motrin*) 600 Mg Tab, 600 MG PO Q6H PRN for PAIN AND OR ELEVATED TEMP, #30 TAB Prov:MARY RUBIO MD 03/02/18 Allergies Allergies: Coded Allergies: hydrocodone (Verified Allergy, Mild, BECOMES AGGITATED, 03/02/18) PMhx/Soc Anesthesia Reaction: No Hx Neurological Disorder: No Hx Respiratory Disorders: No Hx Cardiac Disorders: No Hx Psychiatric Problems: No Hx Miscellaneous Medical Probl: No Hx Alcohol Use: No Hx Substance Use: No Hx Tobacco Use: No Physical Exam Vitals Vital Signs Date Temp Pulse Resp B/P (MAP) Pulse Ox O2 O2 Flow FiO2 Time Delivery Rate 12/23/18 98.1 86 16 133/74 98 08:08 (93) Physical Exam GENERAL: Well-developed, well-nourished female. Appears anxious and tearful. HEAD: Normocephalic, atraumatic. EYES: Pupils are equally reactive bilaterally. EOMs grossly intact. No conjunctival erythema. Stye noted to the right upper eyelid. ENT: Moist mucous membranes. No uvula deviation. No kissing tonsils. NECK: Supple. No meningismus. Normal range of motion of the neck. LUNG: Clear to auscultation bilaterally. No rhonchi, wheezing, rales or coarse breath sounds. HEART: Regular rate and rhythm. No murmurs, rubs or gallops. EXTREMITIES: Equal pulses bilaterally. No peripheral clubbing, cyanosis or edema. No unilateral leg swelling. NEUROLOGIC: Alert and oriented x3, cooperative. Mood and affect appropriate to situation. Cranial nerves II through XII are grossly intact. Normal speech. Motor exam: 5/5 strength in upper and lower extremities. Sensory exam: Sensation intact to light touch on all four extremities. Cerebellar function exam: No dysmetria on [id number]-[id number] and [id number] test. Steady gait. No pronator d rift. Equal occasional caregiver strength bilaterally. Equal smile. No facial asymmetry noted. SKIN: Normal color. Warm and dry. No rashes or lesions. Results 24 hrs Current Medications Medications Dose Sig/Aba Start Time Status Last (Trade) Ordered Route PRN Stop Time Admin Dose Reason Admin Lorazepam 1 mg ONCE ONCE 12/23/18 DC 12/23/18 (Ativan) PO 09:00 12/23/18 08:47 09:01 Procedures/MDM MEDICAL DECISION MAKING: This is a 48-year-old female presents the ER for concerns of a headache and left-sided arm and leg pain for the last week. Patient was seen here 2 days ago similar complaints. She states she has had similar pain for many years now. Vital signs were reviewed. Patient was afebrile. Patient denied any fevers, neck stiffness, jaw claudication, visual changes or LOC. Full neurological exam was normal. Low suspicion for TIA, CVA, intracranial hemorrhage, meningitis, intracranial mass. Upon further discussion with the patient and her daughter, patient did admit to feeling stressed. Patient stated her stress is due to personal reasons. Patient denies any homicidal ideations or suicidal ideations. Patient stated that she did have a history of depression was taking antidepressants however she had stopped it many years ago. Patient states she has not been able to follow- up with her mental health provider secondary to insurance changes. Given that patient reported feeling stressed, I did offer the patient Ativan. Patient agreed to take the medication. Upon examination, patient reported improvement in symptoms. Patient will be discharged home a short course of Ativan. Patient was encouraged to follow-up with mental health specialist and/or spray i painter for her pain. Patient provided with mental health services. Patient was nontoxic, [id number] prior to discharge. PRESCRIPTIONS: Ativan DISCHARGE: At this time, patient is stable for discharge and outpatient management. I have encouraged the patient to hydrate well. I have instructed the patient to follow- up with his/her primary care physician in 1-2 days. If symptoms persist, patient may need to see a specialist for further examinations and testing. I have instructed the patient to promptly return to the ER at any time for any new or worsening symptoms including increased increased pain, fever, nausea, vomiting, numbness, neck stiffness, visual changes, weakness or LOC. The patient and/or family expressed understanding of and agreement with this plan. All questions were answered. Home care instructions were provided. Disclaimer: Inadvertent spelling and grammatical errors are likely due to EHR/dictation software use and do not reflect on the overall quality of patient care. Also, please note that the electronic time recorded on this note does not necessarily reflect the actual time of the patient encounter. Departure Diagnosis: Primary Impression: Generalized pain Additional Impressions: Headache Headache type: unspecified Headache chronicity pattern: unspecified pattern Intractability: not intractable Qualified Codes: R51 - Headache Anxiousness Condition: Fair Patient Instructions: Your Body's Response to Anxiety, Self-Care for Headaches Referrals: EYAD FIELD MD Additional Instructions: Follow-up with a pain management doctor on an outpatient basis. See referral information. Follow-up with a psychologist/psychiatrist to discuss restarting antidepressants. KIRK TIDWELL PA-C Dec 23, 2018 08:53
[2018-12-23] MEDS ORDERED: LORAZEPAM 1 MG TAB PO ONE (09:00)
== END 2018-12-23 09:17 | disposition home or self-care (01) ==
LOC: FTE 08:05
DX: R51 Headache (principal); F41.9 Anxiety disorder, unspecified
CPT/HCPCS: 99283